=== PATIENT | female | born 1985 | race Caucasian/White ===

== ENCOUNTER 2018-11-22 13:31 | Emergency (ER) | payer OTHER ==
[~2018-11-22] VITALS: Ht 162.6 cm; Wt 77.1 kg
[~2018-11-22 13:31] MED LIST: AMOX1TAB12 PO; CORTISPORIN EAR10 M1 OT; INTESTINEX680 MG PO; SYNTHROID50 MCG
== END 2018-11-22 18:05 | disposition home or self-care (01) ==
LOC: ER 13:31
DX: M54.42 Lumbago with sciatica, left side (principal)

== ENCOUNTER 2019-10-24 09:56 | Emergency (ER) | payer OTHER ==
[~2019-10-24] VITALS: Ht 162.6 cm; Wt 80.7 kg
[2019-10-24] MEDS ORDERED: KETO10TA2 PO (12:38)
[2019-10-24] MEDS ORDERED: NORFLEX100MG PO (12:38)
== END 2019-10-24 13:21 | disposition home or self-care (01) ==
LOC: ER 09:56
DX: M54.2 Cervicalgia (principal); M25.512 Pain in left shoulder

== ENCOUNTER 2020-03-28 15:15 | Emergency (ER) | payer OTHER ==
[~2020-03-28] VITALS: Ht 162.6 cm; Wt 80.3 kg
[~2020-03-28 15:15] MED LIST changes: +KETO10TA2 PO; +NORFLEX100MG PO
== END 2020-03-28 20:02 | disposition home or self-care (01) ==
LOC: ER 15:15
DX: B34.9 Viral infection, unspecified (principal); Z03.818 Encounter for observation for suspected exposure to other biological agents ruled out

== ENCOUNTER 2020-10-15 21:25 | Emergency (ER) | payer OTHER ==
[~2020-10-15] VITALS: Ht 162.6 cm; Wt 76.2 kg
[2020-10-15] MEDS ORDERED: MEDROLPACK PO (23:16)
== END 2020-10-16 00:53 | disposition home or self-care (01) ==
LOC: ER 21:25
DX: J02.9 Acute pharyngitis, unspecified (principal); R49.0 Dysphonia; Z03.818 Encounter for observation for suspected exposure to other biological agents ruled out

== ENCOUNTER 2021-01-18 18:33 | Emergency (ER) | payer OTHER ==
[~2021-01-18] VITALS: Ht 162.6 cm; Wt 80.7 kg
[~2021-01-18 18:33] MED LIST changes: +MEDROLPACK PO
== END 2021-01-18 22:34 | disposition home or self-care (01) ==
LOC: ER 18:33
DX: O46.8X1 Other antepartum hemorrhage, first trimester (principal); Z3A.01 Less than 8 weeks gestation of pregnancy; Z20.822 Contact with and (suspected) exposure to COVID-19

== ENCOUNTER 2021-03-16 06:55 | Day surgery (SDC) | payer OTHER | END 2021-03-16 17:15 | disposition home or self-care (01) | LOC: CIR.AMB 06:55 | PROVIDERS: ATTEND Obstetrics & Gynecology Maternal & Fetal Medicine | DX: O02.1 Missed abortion (principal); Z20.822 Contact with and (suspected) exposure to COVID-19 ==

== ENCOUNTER 2021-08-16 13:48 | Emergency (ER) | payer OTHER ==
[~2021-08-16] VITALS: Ht 165.1 cm; Wt 83.9 kg
[2021-08-16] MEDS ORDERED: FLONASE16 GM NASAL (16:41)
== END 2021-08-16 16:49 | disposition home or self-care (01) ==
LOC: ER 13:48
DX: J32.9 Chronic sinusitis, unspecified (principal)